=== PATIENT | male | born 1945 | race Two or more races ===

== ENCOUNTER 2024-06-19 18:02 | Emergency (ER) | payer OTHER, MEDICAID, SELFPAY ==
[2024-06-19 18:06] VITALS: BP 143/74; PULSE 104; RESP 19; TEMP 36.8; O2SAT 98
--- NOTE | 2024-06-19 18:20 | EKG_ITS ---
[facility] Test Date: 2024-06-19 Pat Name: TERENCE SILVA Department: Room: - Gender: Male Rn Neonatal Icu: : 1945 Requested By: Jayson Porter Order Number: [id number] Reading MD: Jayson Porter Measurements Intervals [place] Rate: 96 P: 54 NE: 150 QRS: 31 QRSD: 142 T: 157 QT: 379 QTc: 481 Interpretive Statements SINUS RHYTHM INTRAVENTRICULAR CONDUCTION DELAY [130+ ms QRS DURATION] Compared to ECG 11/15/2022 22:20:10 Intraventricular conduction delay now present Sinus tachycardia no longer present Left bundle-branch block no longer present /store/S0/[id number]
--- NOTE | 2024-06-19 18:40 | XR_ITS ---
Examination: CT brain head without contrast. 2-D sagittal coronal reconstructions Date and time of exam:June 19, 2024 1851 hrs. Indications: Onset vertigo headache dizziness beginning yesterday CTDI: vol (mGy):50.2 DLP: (mGycm):1054 Technique: Multiple CT axial sections of the brain have been obtained, 5 mm slice thickness. Contrast has not been administered. 2-D sagittal, coronal reconstructions have been obtained Low dose protocols were performed. One or more of the following dose reduction techniques were used; automated exposure control, adjustment of the mA and/or KV according to patient size, use of iterative reconstruction technique. Findings: No significant ventricular enlargement. Small frontoparietal chronic subdural hygromas, on the left side at the level of the frontal horns measuring 8 mm on the right side 7 mm Intra-axial or extra-axial hemorrhage density is not seen. No mass effect or midline shift Basal cisterns are not remarkable. Fourth ventricle is midline. Cranial vault intact. Impression: Negative for acute hemorrhage, mass effect or midline shift Given the chronic small subdural hygromas, recommend 3 month follow-up CT brain scan or sooner as clinically warranted
--- NOTE | 2024-06-19 18:40 | EDRME_ITS ---
Rapid Medical Screening Exam [facility] Arrival date/time: 06/19/24 18:02 79M with history of HTN and DM presents to ED with 2 days of SHAVER, dizziness and increased urination (frequency, but no dsyuria). The urination is bothering him the most. Chief Complaint: Urogenital-Male Vital signs: Vital Signs Temperature 98.3 F 06/19/24 18:06 Pulse Rate 104 H 06/19/24 18:06 Respiratory Rate 19 06/19/24 18:06 Blood Pressure 143/74 H 06/19/24 18:06 Pulse Oximetry (%) 98 06/19/24 18:06 Oxygen Delivery Method Room Air 06/19/24 18:06
[2024-06-19 19:10] LABS: Collection Type, Urine Clean Catch; Squamous Epithelial Cell,Urine 0 /hpf (0-5)
[2024-06-19 19:31] LABS: Basophils % (Auto) 0 % (0-2.5); Eosinophils % (Auto) 0 % (0-10); Hematocrit 37.8 % (41.0-53.0); Hemoglobin 13.1 g/dL (13.5-16.0); Immature Granulocytes % (Auto) 0 % (0-0); Immature Granulocytes Auto 0.04 Thou/mm3 (0.00-0.00); Lymphocytes # (Auto) 1.7 Thou/mm3 (1.0-4.8); Lymphocytes % (Auto) 15 % (10-50); Mean Corpuscular HGB Conc 34.7 g/dl (31.0-37.0); Mean Corpuscular Volume 92 fL (80-100); Monocytes # (Auto) 0.9 Thou/mm3 (0.0-0.8); Monocytes % (Auto) 7 % (0-12); Neutrophils # (Auto) 8.9 Thou/mm3 (1.8-7.7); Neutrophils % (Auto) 77 % (37-80); Nucleated Red Blood Cell % 0 /100 WBC (0); Platelet Count 217 Thou/mm3 (140-440); RDW Standard Deviation 46.8 fL (35.1-43.9); White Blood Count 11.5 Thou/mm3 (3.8-10.6)
[2024-06-19 19:31] LABS: Bacteria,Urine 1+; Bilirubin,Urine Negative (Negative); Blood,Urine 2+ (Negative); Clarity,Urine Turbid (Clear/Hazy); Color,Urine Yellow (Lt Yel-Yel); Culture Indicated,Urine Yes; Glucose, Urine 4+ (Negative); Ketones,Urine Negative (Negative); Leukocyte Esterase,Urine Positive (Negative); Nitrite,Urine Positive (Negative); Protein,Urine 1+ (Neg - Trace); RBC,Urine 67 /hpf (0-3); Specific Gravity,Urine 1.016 (1.001-1.035); Urobilinogen,Urine Negative mg/dL (0.0-1.0); WBC,Urine 2868 /hpf (0-5)
[2024-06-19 19:43] LABS: Alanine Aminotransferase 15 U/L (10-49); Albumin/Globulin Ratio 1.8 (1.2-2.2); Alkaline Phosphatase 97 U/L (46-116); Anion Gap 10 (7-16); Aspartate Amino Transferase 15 U/L (0-34); BUN/Creatinine Ratio 18 Ratio (12-20); Bilirubin,Total 1.1 mg/dL (0.3-1.2); Blood Urea Nitrogen 28 mg/dL (9-23); Calcium 9.5 mg/dL (8.3-10.6); Calcium (Corrected) 9.5 mg/dL (8.5-10.1); Carbon Dioxide 25.5 mMol/L (20.0-31.0); Chloride 98 mMol/L (98-107); Creatinine (Component) 1.6 mg/dL (0.6-1.3); Globulin 2.8 gm/dL (2.3-3.5); Glucose 160 mg/dL (74-106); Osmolality,Calculated 274 (275-295); Potassium 4.1 mMol/L (3.4-5.1); Sodium 133 mMol/L (136-145); Total Protein 7.8 gm/dL (5.7-8.2); Troponin I < 0.020 ng/mL (0.0-0.045); eGFR 43 See Note
--- NOTE | 2024-06-19 20:06 | EDNOTE_ITS ---
ED Male Genitalurinary RME/HPI General Chief complaint: Urogenital-Male Stated complaint: dizziness since yesterday. frequent urination Arrival date/time: 06/19/24 18:02 RME / HPI RME / HPI Narrative: 06/19/24 18:02 79M with history of HTN and DM presents to ED with 2 days of SHAVER, dizziness and increased urination (frequency, but no dsyuria). The urination is bothering him the most. This section includes all my notes and documentations, including HPI, PE, and ED course. Elmer Padgett MD HPI: 79-year-old male here with a few days of dysuria and urinary frequency and urgency and incontinence. With severe headache and high BP at home. No fever. Occasional chills. No other complaints. ROS: Gastrointestinal: negative except as documented in HPI. Genitourinary: negative except as documented in HPI. Musculoskeletal: negative except as documented in HPI. Skin: negative except as documented in HPI. Neurological: negative except as documented in HPI. Physical Exam: General: Alert and oriented. No acute distress. Eyes: Conjunctivae and lids clear. EOMI. PERRL. ENT: No nasal congestion. Neck: Supple. Heart: RRR. Lungs: No respiratory distress. Good air movement. No rhonchi, wheezing, rales. Abdomen: Soft and nontender. Normal bowel sounds. No distension. No rebound or guarding. Back: No CVA tenderness. Legs: No clubbing, cyanosis, edema. Skin: Warm and dry. Neuro: Alert and oriented X 3. Cranial Nerves II-XII grossly intact. No peripheral motor deficits. I reviewed all diagnostic test results. My interpretation of the EKG is sinus rhythm with nonspecific ST-T changes. My review of the head CT report is no acute findings. Blood tests and urine tests remarkable for severe UTI. At this point, diagnoses include UTI. Treatment here included Rocephin IM. Recommended a trial of outpatient treatment. Based on my best medical judgment, made decision no further evaluation or treatment indicated at this time. Patient understands and agrees to the dis charge instructions customized and printed, see below. Discharge instructions from Dr. Padgett: 1. After evaluation, you have severe UTI (see attached handout).? 2. Take cefdinir to kill the germs causing the infection.? Increase oral fluid to flush it out.? Maintain clear urine.? If dark or yellow, increase oral fluid. 3. The head CT didn't show stroke or brain tumor or aneurysm or anything else ba michelle 4. See a private doctor on 06/22/2024 for recheck.? Ask to check the final urine culture results from today to make sure cefdinir doesn't need to be changed due to resistance. 5. Seek immediate medical care with worsening, fever, or with any concerns. Elmer Padgett MD Related Data Home Medications ?Medication ?Instructions ?Recorded ?Confirmed atorvastatin 10 mg tablet 10 mg PO QDAY 11/16/22 11/17/22 lisinopril 10 mg tablet 10 mg PO QDAY 11/16/22 11/17/22 amlodipine 5 mg tablet 5 mg PO QDAY 11/17/22 11/17/22 aspirin 81 mg tablet,delayed 81 mg PO QDAY 11/17/22 11/17/22 release dapagliflozin propaned 5 1 tab PO BIDWM 11/17/22 11/17/22 mg-metformin ER 1,000 mg tablet, ext rel 24hr (Xigduo XR) Previous Rx's ?Medication ?Instructions ?Recorded finasteride 5 mg tablet 5 mg PO QDAY 30 days #30 tabs 11/18/22 cefdinir 300 mg capsule 300 mg PO BID #14 caps 06/19/24 Allergies Allergy/AdvReac Type Severity Reaction Status Date / Time No Known Allergies Allergy Verified 06/19/24 18:03 Course Quality Measures none Orders Category Date Time Status EKG (ED ONLY) *Do not use* NOW Care 06/19/24 18:[address] head/brain wo con Stat Exams 06/19/24 18:40 Completed EKG (ED Only) Stat Exams 06/19/24 18:20 Draft CBC Stat Lab 06/19/24 19:05 Completed Comprehensive Metabolic Panel Stat Lab 06/19/24 19:05 Completed Troponin I Stat Lab 06/19/24 19:05 Completed Urinalysis, C/S if Indicated Stat Lab 06/19/24 18:52 Completed Urine Culture Stat Lab 06/19/24 18:52 Received cefTRIAXone [Rocephin] 1,000 mg Med 06/19/24 20:01 Discontinued Lidocaine 1% 20 ml [Xylocaine 1% 20 ML] 2.1 ml IM X1 Vital Signs Vital signs: Vital Signs Temperature 98.3 F 06/19/24 18:06 Pulse Rate 104 H 06/19/24 18:06 Respiratory Rate 19 06/19/24 18:06 Blood Pressure 143/74 H 06/19/24 18:06 Pulse Oximetry (%) 98 06/19/24 18:06 Oxygen Delivery Method Room Air 06/19/24 18:06 Urogenital - Male Patient data External records reviewed:: [facility] previous records Clinical information provided by:: patient and family Social determinants that could affect healthcare access:: none Patient has the following chronic illnesses:: See chart How is presenting disease/condition affected by chronic disease/condition?: uneffected by Evaluation data The following diagnostics were reviewed and interpreted by me:: lab results, radiology exam(s) and EKG tracing(s) Lab and/or radiology exams considered but not ordered:: None Interpretation Summary: UTI Medications / Prescriptions Medications or Prescriptions considered but not ordered:: None Medication administrations:: Medication Administration History Discontinued Medications Ceftriaxone Sodium 1,000 mg/ (Lidocaine HCl 2.1 ml) 0 mg IM X1 ONE Stop: 06/19/24 20:02 Rocephin IM Consultations Consultation(s) initiated? (list below): No Diagnosis Urogenital Male Differential Diagnosis: urinary tract infection, urethritis, epididymitis, prostatitis and acute retention of urine Most likely diagnosis given after review of the tests above:: UTI Admission Indicated Admission indicated?: not indicated Explain why admission is indicated or not indicated:: No admission criteria Admission Request Was there a request for admission?: No Disposition Plan Disposition Plan: Discharge Discharge Attestation Discharge Attestation: The patient and all family members were given an opportunity to ask questions and understood the discharge instructions. Discharge instructions specifically effects, indications for sooner follow up or return to the emergency department, and the expected course of current diagnosis. Patient condition: Stable Discharge Plan Plan Patient Disposition: HOME (Self Care) Prescriptions/Referrals Prescriptions/Med Rec: New cefdinir 300 mg capsule 300 mg PO BID Qty: 14 0RF No Action atorvastatin 10 mg tablet 10 mg PO QDAY Patient Comments: TOME KARLY TABLETA TODOS LOS D lisinopril 10 mg tablet 10 mg PO QDAY Patient Comments: TOME KARLY TABLETA TODOS LOS D amlodipine 5 mg tablet 5 mg PO QDAY Patient Comments: TOME KARLY TABLETA TODOS LOS D aspirin 81 mg tablet,delayed release (DR/EC) 81 mg PO QDAY Patient Comments: TOME KARLY TABLETA TODOS LOS D Xigduo XR 5-1,000 mg tablet, IR - ER, biphasic 24hr 1 tab PO BIDWM Patient Comments: TOME KARLY TABLETA POR V A ORAL DOS VECES AL D A CON ALIMENTO finasteride 5 mg tablet 5 mg PO QDAY 30 Days Qty: 30 1RF Referrals: Kathy Grigsby, [employer] [Primary Care Provider] - In 1 week Problem List Clinical Impression: Urinary tract infection Patient/Caregiver Discharge Instructions Discharge Activity: activity as tolerated Education Materials: ED Bladder Infection, Male (Adult) Additional Instructions: Discharge instructions from Dr. Padgett: 1. After evaluation, you have severe UTI (see attached handout).? 2. Take cefdinir to kill the germs causing the infection.? Increase oral fluid to flush it out.? Maintain clear urine.? If dark or yellow, increase oral fluid. 3. The head CT didn't show stroke or brain tumor or aneurysm or anything else bad. 4. See a private doctor on 06/22/2024 for recheck.? Ask to check the final urine culture results from today to make sure cefdinir doesn't need to be changed due to resistance. 5. Seek immediate medical care with worsening, fever, or with any concerns. Print Language: Monegasque Stand Alone Forms: Britta Award Info., Patient Portal Info Letter
[2024-06-19] MEDS: cefTRIAXone 1,000 MG, LIDOCAINE 1% 20 ML 2.1 ML IM (20:08)
[2024-06-19 20:12] VITALS: BP 132/86; PULSE 72; RESP 18; TEMP 36.9; O2SAT 98; BMI 34.4
== END 2024-06-19 20:15 | disposition home or self-care (01) ==
PROVIDERS: Physician Assistant; Emergency Provider Emergency Medicine; PCP Nurse Practitioner Family
DX: N39.0 Urinary tract infection, site not specified (principal); I45.89 Other specified conduction disorders; R42 Dizziness and giddiness; R51.9 Headache, unspecified; I10 Essential (primary) hypertension
CPT/HCPCS: 36415; 70450; 80053; 81001; 84484; 85025; 87077; 87086; 87186; 93005; 96372; 99284; J0696; J3490

== ENCOUNTER → 2024-08-03 | Outpatient (CLI) | payer OTHER, MEDICAID, SELFPAY ==
--- NOTE | 2024-08-03 | XR_ITS ---
Examination: PA lateral chest 2 views TECHNIQUE: Upright PA lateral chest 2 views Exam date and time: August 03, 2024 1332 hours INDICATIONS: Coughing one week. FINDINGS: Normal heart size No lobar pneumonia Stable left paratracheal region Significant osteopenia IMPRESSION: No interval pneumonia or pulmonary edema
== END | disposition home or self-care (01) ==
LOC: CDIM 13:13
PROVIDERS: PCP Family Medicine; Referring Provider Nurse Practitioner Family; Visit Provider Nurse Practitioner Family
DX: R05.9 Cough, unspecified (principal)
CPT/HCPCS: 71046

== ENCOUNTER → 2024-09-02 | Outpatient (CLI) | payer OTHER, MEDICAID, SELFPAY | END | disposition home or self-care (01) | PROVIDERS: PCP Nurse Practitioner Family; Referring Provider Nurse Practitioner Family; Visit Provider Nurse Practitioner Family | DX: Z53.29 Procedure and treatment not carried out because of patient's decision for other reasons (principal) ==

== ENCOUNTER → 2024-09-02 | Outpatient (CLI) | payer OTHER, MEDICAID, SELFPAY ==
--- NOTE | 2024-09-02 15:28 | XR_ITS ---
Examination: Shoulder,right, 3 views Technique: Shoulder AP internal rotation, AP external rotation, Y view shoulder, 3 views Exam date and time :September 02, 2024 1542 hours INDICATIONS: Right shoulder pain months FINDINGS: Moderate narrowing glenohumeral joint Moderate osteopenia No fracture. Mild calcific tendinitis Moderate osteoarthritis acromioclavicular joint IMPRESSION: Moderate osteoarthritis Mild shoulder calcific tendinitis
== END | disposition home or self-care (01) ==
LOC: CDIM 14:28
PROVIDERS: Referring Provider Nurse Practitioner Family; Visit Provider Nurse Practitioner Family
DX: M19.011 Primary osteoarthritis, right shoulder (principal); M75.31 Calcific tendinitis of right shoulder
CPT/HCPCS: 73030

== ENCOUNTER 2024-11-13 11:55 | Emergency (ER) | payer OTHER, MEDICAID, SELFPAY ==
--- NOTE | 2024-11-13 11:58 | XR_ITS ---
Examination: AP chest single view Technique: AP portable upright chest single view Exam date and time: November 13, 2024 1242 hrs. Comparison July 2024 Indications: Shortness of breath today. Findings: Normal heart size Mild vascular congestion Accentuation basilar bronchovascular markings. No pneumonia No pulmonary edema Prominent osteopenia Impression: Basilar bronchitis pattern
--- NOTE | 2024-11-13 11:58 | EKG_ITS ---
[facility] Test Date: 2024-11-13 Pat Name: TERENCE SILVA Department: Room: - Gender: Male Building Wrecker: : 1945 Requested By: Javier Graff Order Number: [id number] Reading MD: Javier Graff Measurements Intervals [place] Rate: 124 P: 73 [place]: 163 QRS: 13 QRSD: 118 T: 128 QT: 315 QTc: 454 Interpretive Statements SINUS TACHYCARDIA ANTEROSEPTAL MYOCARDIAL INFARCTION , POSSIBLY ACUTE [40+ ms Q WAVE IN V1-V4] ACUTE [place] Compared to ECG 06/19/2024 18:32:16 Myocardial infarct finding now present Sinus rhythm no longer present Intraventricular conduction delay no longer present /store/S0/[id number].pdf
[2024-11-13 12:09] VITALS: PULSE 121; RESP 20; O2SAT 98
[2024-11-13] MEDS: ALBUTEROL/IPRATROPIUM (Duoneb) RT SOL 3 ML NEBU INH (12:10)
[2024-11-13 12:13] VITALS: BP 147/74; PULSE 126; PULSE 133; RESP 20; RESP 22; TEMP 37.4; O2SAT 97
--- NOTE | 2024-11-13 12:21 | PD.EDADULT ---
ED General RME/HPI General Chief complaint: Shortness of Breath/Dyspnea Stated complaint: SOB Time Seen by Provider: 11/13/24 11:58 Arrival date/time: 11/13/24 11:55 CC: Cough shortness of breath HPI ongoing for the past 3 days after peeling toe materials. The patient states he has had problems breathing since he had the COVID back in the day . Patient denies any chest pain he is awake alert oriented audible wheezing. EMS report oxygen saturation of 90% on room air he is now on 6 L satting 94% mildly tachypneic.. Limitations: no limitations Related Data Home Medications ?Medication ?Instructions ?Recorded ?Confirmed atorvastatin 10 mg tablet 10 mg PO QDAY 11/16/22 11/17/22 lisinopril 10 mg tablet 10 mg PO QDAY 11/16/22 11/17/22 amlodipine 5 mg tablet 5 mg PO QDAY 11/17/22 11/17/22 aspirin 81 mg tablet,delayed 81 mg PO QDAY 11/17/22 11/17/22 release dapagliflozin propaned 5 1 tab PO BIDWM 11/17/22 11/17/22 mg-metformin ER 1,000 mg tablet, ext rel 24hr (Xigduo XR) Previous Rx's ?Medication ?Instructions ?Recorded finasteride 5 mg tablet 5 mg PO QDAY 30 days #30 tabs 11/18/22 cefdinir 300 mg capsule 300 mg PO BID #14 caps 06/19/24 ciprofloxacin HCl 500 mg tablet 500 mg PO BID #14 tabs 11/13/24 (Cipro) prednisone 20 mg tablet See Taper PO BID 3 days #6 tabs 11/13/24 Allergies Allergy/AdvReac Type Severity Reaction Status Date / Time No Known Allergies Allergy Verified 06/19/24 18:03 Review of Systems Review of Systems Narrative Review of Systems: GEN: No fever, no chills, no weight loss EYES: No discharge, no visual changes, no pain HEENT: No ear pain, no congestion, no sore throat PULM: + shortness of breath, no cough, no congestion CV: No chest pain, no dyspnea on exertion, no palpitations GI: No nausea, no vomiting, no diarrhea, no pain, no constipation : No frequency, no urgency, no dysuria MUSC/SKEL: No joint pain, no back pain SKIN: No rash PSYCH: No hallucinations, no depression HEME/LYMPH: No easy bleeding or bruising tendencies NEURO: No weakness, no headache Past Medical History Past Medical History CARDIAC: Negative Congestive Heart Failure RESPIRATORY: Positive Bronchitis and Pneumonia; Negative Chronic Obstructive Pulmonary Disease (COPD) GENITOURINARY: Negative Renal Disease ENDOCRINE: Positive Diabetes Mellitus Type 2; Negative Diabetes Mellitus Type 1 Social History SMOKING STATUS: Never smoker SUBSTANCE USE: does not use ED Exam Narrative Physical exam: [General: Not in any acute distress Head normocephalic HEENT: Within acceptable limits Neck is supple nontender Chest equal chest rise nontender to palpation Respiratory: Audible expiratory wheezing, basilar crackles. Tachypneic. No pursed lip breathing no accessory muscle use no nasal flaring. CV: Rate rhythm is regular, tachycardic, no murmurs rubs or clicks Abdomen is distended secondary to body habitus soft nontender no masses positive bowel sounds all 4 quadrants Back: No CVA tenderness no spinous process tenderness from cervical spine thoracic and lumbar spine Skin: Intact no petechiae rash induration ulceration or crepitus Extremities: Moving all extremity against resistance cap refill less than 2 seconds neurosensory intact. No lower extremity edema Neuro: Awake alert oriented x3 Glascow coma 15 no focal deficits] General Limitations: Present no limitations General appearance: Present alert Head Head exam: Present normal inspection Course Quality Measures none Orders Category Date Time Status Bedside COVID-19 Antigen Test NOW Care 11/13/24 12:16 Active Bedside Influenza A&B Antigen Test NOW Care 11/13/24 12:16 Completed EKG (ED ONLY) *Do not use* NOW Care 11/13/24 11:58 Completed EKG (ED Only) Stat Exams 11/13/24 11:58 Draft XR chest 1V Stat Exams 11/13/24 11:58 Completed B-Type Natriuretic Peptide Stat Lab 11/13/24 12:16 Completed CBC Stat Lab 11/13/24 12:16 Completed Cocci Serology IgM with reflex to IgG [Cocci Serology, Lab 11/13/24 12:16 Received Unk History] Stat Comprehensive Metabolic Panel Stat Lab 11/13/24 12:16 Completed Drug Screen,Urine Stat Lab 11/13/24 13:00 Completed LDH (Lactate Dehydrogenase) Stat Lab 11/13/24 12:16 Completed Magnesium Stat Lab 11/13/24 12:16 Completed Partial Thromboplastin Time Stat Lab 11/13/24 12:16 Completed Prothrombin Time with INR Stat Lab 11/13/24 12:16 Completed Troponin I Stat Lab 11/13/24 12:16 Completed Urinalysis Stat Lab 11/13/24 13:00 Completed Albuterol/Ipratr Rt Liset [Duoneb Rt Liset] Med 11/13/24 11:58 Discontinued 3 ml INH X1 ONE cefTRIAXone/D5w 1gm IV premix [Rocephin/D5w 1gm IV Med 11/13/24 13:37 Discontinued premix] 1 gm in 50 ml IV X1 Vital Signs Vital signs: Vital Signs Temperature 99.3 F 11/13/24 12:13 Pulse Rate 133 H 11/13/24 12:13 Respiratory Rate 20 11/13/24 12:13 Blood Pressure 147/74 H 11/13/24 12:13 Pulse Oximetry (%) 97 11/13/24 12:13 Oxygen Delivery Method Room Air 11/13/24 12:13 Discharge Plan Plan Patient Disposition: HOME (Self Care) Patient condition on transfer: Stable Prescriptions/Referrals Prescriptions/Med Rec: New ciprofloxacin HCl [Cipro] 500 mg tablet 500 mg PO BID Qty: 14 0RF prednisone 20 mg tablet See Taper PO BID 3 Days Qty: 6 0RF Taper: Prednisone Taper 20 mg DAILY for 2 Days and 0 Hour 10 mg DAILY for 2 Days and 0 Hour 5 mg DAILY for 7 Days and 0 Hour No Action cefdinir 300 mg capsule 300 mg PO BID Qty: 14 0RF atorvastatin 10 mg tablet 10 mg PO QDAY Patient Comments: TOME KARLY TABLETA TODOS LOS D lisinopril 10 mg tablet 10 mg PO QDAY Patient Comments: TOME KARLY TABLETA TODOS LOS D amlodipine 5 mg tablet 5 mg PO QDAY Patient Comments: TOME KARLY TABLETA TODOS LOS D aspirin 81 mg tablet,delayed release (DR/EC) 81 mg PO QDAY Patient Comments: TOME KARLY TABLETA TODOS LOS D Xigduo XR 5-1,000 mg tablet, IR - ER, biphasic 24hr 1 tab PO BIDWM Patient Comments: TOME KARLY TABLETA POR V A ORAL DOS VECES AL D A CON ALIMENTO finasteride 5 mg tablet 5 mg PO QDAY 30 Days Qty: 30 1RF Referrals: Kathy Grigsby NP [Primary Care Provider] - In 1 week Problem List Clinical Impression: Acute UTI Patient/Caregiver Discharge Instructions Education Materials: ED Bladder Infection, Male (Adult) Print Language: Latvian Stand Alone Forms: Britta Award Info., Work/School Release, Patient Portal Info Letter PA/KAYLENE Supervising Physician KUMAR Supervising Physician: Javier Castillo ENP MDM Patient Acuity High Acuity (complete MDM) Clinical Information Provided by: patient and EMS Medical Records reviewed [facility] Medical Records additional comments: Review of the EKG with an old one from May 2024 shows left bundle branch block. Labs/Rad/Tests considered, not ordered Describe: CBC shows a mild leukocytosis of 13.0 H&H of 12.4 and 36.4 respectively platelets within acceptable limits No bandemia Coags within acceptable limits CMP shows a creatinine of 1.4 glucose of 129 no other electrolyte imbalances renal impairment transaminitis or T. bili elevation Troponin is negative BNP negative Urine leukocyte esterase positive WBCs at 338 and bacteria. Also nitrite positive. UDS is negative. EKG EKG Interpretation(s): EKG performed at 1204 shows ventricular rate of 124 [place] interval 163 QRS of 118 QTc of 389 this is sinus tachycardia left bundle branch block when compared to an old EKG of May 2024 there are no significant changes. EKG morphology confirmed as left bundle branch block with Dr. Kinney cardiology. Labs Lab(s) Interpretation(s): Patient is positive for urinary tract infection. At this time the patient will be sent home on antibiotics. Medication Administration(s) Medication Administration History Discontinued Medications Albuterol/Ipratropium (Albuterol/Ipratropium (Duoneb) Rt Liset 3 Ml Nebu) 3 ml INH X1 ONE Stop: 11/13/24 11:59 Last Admin: 11/13/24 12:10 Dose: 3 ml Documented By: MORGAN Ceftriaxone Sodium/Dextrose (Rocephin/D5w 1gm Iv Premix) 1 gm in 50 mls @ 100 mls/hr IV X1 ONE Stop: 11/13/24 14:06 Last Infusion: 11/13/24 14:49 Dose: Infused Documented By: Admin: 11/13/24 13:48 Dose: 100 mls/hr Documented By: CAMDEN Diagnosis Differential Diagnosis ED Complaint MDM: UTI pneumonia CHF Diagnoses ruled out: UTI
[2024-11-13 12:36] LABS: Basophils % (Auto) 0 % (0-2.5); Eosinophils # (Auto) 0.3 Thou/mm3 (0.0-0.5); Eosinophils % (Auto) 3 % (0-10); Hematocrit 36.4 % (41.0-53.0); Hemoglobin 12.4 g/dL (13.5-16.0); Immature Granulocytes % (Auto) 0 % (0-0); Immature Granulocytes Auto 0.04 Thou/mm3 (0.00-0.00); Lymphocytes # (Auto) 0.9 Thou/mm3 (1.0-4.8); Lymphocytes % (Auto) 7 % (10-50); Mean Corpuscular HGB Conc 34.1 g/dl (31.0-37.0); Mean Corpuscular Hemoglobin 32.1 pg (25.0-35.0); Mean Corpuscular Volume 94 fL (80-100); Monocytes # (Auto) 0.6 Thou/mm3 (0.0-0.8); Monocytes % (Auto) 4 % (0-12); Neutrophils # (Auto) 11.2 Thou/mm3 (1.8-7.7); Neutrophils % (Auto) 86 % (37-80); Nucleated Red Blood Cell % 0 /100 WBC (0); Platelet Count 169 Thou/mm3 (140-440); RDW Standard Deviation 46.4 fL (35.1-43.9); Red Blood Count 3.86 Miln/mm3 (4.50-5.90)
[2024-11-13 12:51] LABS: Partial Thromboplastin Time 25.1 Seconds (22.0-36.0); Prothrombin Time 10.6 Seconds (9.0-12.2)
[2024-11-13 12:56] LABS: B-Type Natriuretic Peptide 39 pg/mL (0-100)
[2024-11-13 13:00] LABS: Alanine Aminotransferase 13 U/L (10-49); Albumin, Serum 4.7 gm/dL (3.4-4.8); Albumin/Globulin Ratio 1.9 (1.2-2.2); Alkaline Phosphatase 93 U/L (46-116); Anion Gap 10 (7-16); Aspartate Amino Transferase 18 U/L (0-34); BUN/Creatinine Ratio 16 Ratio (12-20); Blood Urea Nitrogen 23 mg/dL (9-23); Calcium 9.1 mg/dL (8.3-10.6); Calcium (Corrected) 9.1 mg/dL (8.5-10.1); Carbon Dioxide 24.9 mMol/L (20.0-31.0); Chloride 107 mMol/L (98-107); Creatinine (Component) 1.4 mg/dL (0.6-1.3); Globulin 2.5 gm/dL (2.3-3.5); Glucose 129 mg/dL (74-106); LDH (Lactate Dehydrogenase) 186 U/L (120-246); Magnesium 1.9 mg/dL (1.6-2.6); Osmolality,Calculated 288 (275-295); Potassium 4.3 mMol/L (3.4-5.1); Sodium 142 mMol/L (136-145); Total Protein 7.2 gm/dL (5.7-8.2); Troponin I < 0.020 ng/mL (0.0-0.045); eGFR 51 See Note
[2024-11-13 13:09] LABS: Collection Type, Urine Clean Catch
[2024-11-13 13:16] LABS: Bacteria,Urine Rare; Bilirubin,Urine Negative (Negative); Blood,Urine 2+ (Negative); Clarity,Urine Turbid (Clear/Hazy); Color,Urine Lt-Yellow (Lt Yel-Yel); Glucose, Urine 4+ (Negative); Ketones,Urine Negative (Negative); Leukocyte Esterase,Urine Positive (Negative); Nitrite,Urine Positive (Negative); PH,Urine 6.5 (5.0-7.0); Protein,Urine Trace (Neg - Trace); RBC,Urine 39 /hpf (0-3); Specific Gravity,Urine 1.016 (1.001-1.035); Squamous Epithelial Cell,Urine 1 /hpf (0-5); Urobilinogen,Urine Negative mg/dL (0.0-1.0); WBC,Urine 338 /hpf (0-5)
[2024-11-13 13:22] LABS: Amphetamine/Methamp Scrn,U Negative (Negative); Barbiturate Screen,Urine Negative (Negative); Benzodiazepines Screen,Urine Negative (Negative); Benzoylecgonine Screen, Ur Negative (Negative); Fentanyl Screen,Urine Negative (Negative); Opiate Screen,Urine Negative (Negative); THC Screen,Urine Negative (Negative)
[2024-11-13] MEDS: cefTRIAXone/D5w 1gm IV premix 1 GM/50 ML BAG IV (13:48)
[2024-11-13 14:52] VITALS: BMI 27.1
[2024-11-14 14:29] LABS: Cocci Serology, IgM Negative (Negative)
[2024-11-15 14:15] LABS: Cocci Serology, IgG Negative (Negative)
== END 2024-11-13 19:01 | disposition home or self-care (01) ==
PROVIDERS: Registered Nurse General Practice; Emergency Provider Family Medicine; PCP Nurse Practitioner Family
DX: N39.0 Urinary tract infection, site not specified (principal); R06.02 Shortness of breath; R05.9 Cough, unspecified
CPT/HCPCS: 36415; 71045; 80053; 80307; 81001; 83615; 83735; 83880; 84484; 85025; 85610; 85730; 86331; 86635; 87400; 87811; 93005; 94640; 96365; 99284; A9270; J0696